=== PATIENT | female | born 1965 | race Caucasian/White ===

== ENCOUNTER 2019-06-17 10:30 | Inpatient (IN) ==
[2019-07-08] MEDS ORDERED: Lactated Ringers 1,000 ML PRIMARY IV ONE ×4 (06:00→11:33)
[2019-07-08] MEDS ORDERED: Nasal Sanitizer POPSWAB ampule 3 AMP (Nozin) PREOP DOSE ENOS SCH (06:00)
[2019-07-08] MEDS ORDERED: ceFAZolin Inj 2gm (Premix) 2 GM/50 ML BAG IV ONE ×2 (06:00→06:36)
[2019-07-08] MEDS ORDERED: Vancomycin-PHA to Dose IV PRN (06:00)
[2019-07-08] MEDS ORDERED: Vancomycin 1.5 gm (Premix) 1.5 GM/300 ML PIGGYBACK IV ONE ×2 (06:00→06:36)
[2019-07-08] MEDS ORDERED: LIDOCAINE W/ SODIUM BICARB 0.5 ML SYR ONE (06:36)
[2019-07-08] MEDS ORDERED: ACETAMINOPHEN 500 MG TABLET PO ONE ×2 (06:59→07:43)
[2019-07-08] MEDS ORDERED: CELECOXIB 200 MG CAPSULE PO ONE ×2 (06:59→07:43)
[2019-07-08] MEDS ORDERED: PANTOPRAZOLE 20 MG TABLET.DR PO ONE ×2 (06:59→07:43)
[2019-07-08] MEDS ORDERED: Gabapentin 600 MG TABLET PO ONE ×2 (06:59→07:43)
[2019-07-08 07:04] LABS: URINE SPECIFIC GRAVITY - MAN 1.019
[2019-07-08 07:10] LABS: BILIRUBIN,URINE NEGATIVE (NEG); CLARITY,URINE CLEAR (CLEAR); COLOR,URINE YELLOW (Y); GLUCOSE, URINE (UA) NEGATIVE (NEG); OCCULT BLOOD,URINE MODERATE (NEG); PROTEIN,URINE NEGATIVE (NEG); UROBILINOGEN,URINE 0.2 EU/dL (0.2)
[2019-07-08 07:16] LABS: RBC,URINE 0 /hpf; SQUAMOUS EPITHELIAL CELL,UR FEW; URINE SAMPLE TYPE CLEAN CATCH URINE; WBC,URINE 0-1
[2019-07-08] MEDS: LIDOCAINE W/ SODIUM BICARB 0.5 ML SYR SUBD ONE ×2 (07:28→07:29)
[2019-07-08] MEDS ORDERED: Propofol 1,000 MG/100 ML VIAL IV ONE ×2 (07:31→10:03)
[2019-07-08] MEDS ORDERED: MIDAZOLAM 5 MG/1 ML ONE (07:36)
[2019-07-08] MEDS ORDERED: fentaNYL Inj 250 MCG/5 ML VIAL ONE (07:36)
[2019-07-08] MEDS ORDERED: LIDOCAINE MPF 2% - 5 ML (20 MG/1 ML) ONE (07:37)
[2019-07-08] MEDS ORDERED: REMIFENTANIL HCL 2 MG VIAL IV ONE (07:54)
[2019-07-08] MEDS: IPRATROPIUM/ALBUTEROL SULFATE 3 ML NEB NEB ONE ×2 (08:03→13:05)
[2019-07-08] MEDS ORDERED: BACITRACIN 50,000 UNIT VIAL IRRIG ONE (08:35)
[2019-07-08] MEDS ORDERED: Sodium Chloride 0.9% vial 10 ML ONE (08:35)
[2019-07-08] MEDS ORDERED: THROMBIN (BOVINE) 20,000 UNIT KIT TOPICAL ONE ×2 (08:36→11:27)
[2019-07-08] MEDS ORDERED: DEXMEDETOMIDINE HCL 200 MCG/2 ML VIAL IV ONE (09:33)
[2019-07-08] MEDS ORDERED: KETAMINE 100 MG/1 ML - 5 ML ONE (09:33)
[2019-07-08] MEDS ORDERED: HYDROmorphone 2 MG/1 ML IVP PRN (10:12)
[2019-07-08] MEDS ORDERED: LIDOCAINE W/ SODIUM BICARB 0.5 ML SYR SUBD PRN (10:12)
[2019-07-08] MEDS ORDERED: ONDANSETRON 4 MG/2 ML VIAL IVP PRN ×2 (10:12→13:55)
[2019-07-08] MEDS ORDERED: DIAZEPAM 10 MG/2 ML (5 MG/1 ML) CARPUJECT IVP PRN (10:19)
[2019-07-08] MEDS ORDERED: Vancomycin Inj 1gm vial ONE (11:45)
[2019-07-08] MEDS ORDERED: PROPOFOL 10 MG/1 ML (200 MG/20 ML) VIAL IV ONE (11:48)
[2019-07-08] MEDS ORDERED: HYDROmorphone 2 MG/1 ML ONE (12:07)
[2019-07-08] MEDS ORDERED: Bacitracin Oint 14.2 gm tube 14 APPLIC/14.2 GM TUBE TOPICAL ONE (12:36)
[2019-07-08] MEDS ORDERED: IPRATROPIUM/ALBUTEROL SULFATE 3 ML NEB NEB ONE (13:03)
[2019-07-08] MEDS ORDERED: Ondansetron ODT Tab 4 MG TAB PO PRN (13:55)
[2019-07-08] MEDS ORDERED: MORPHINE SULFATE 2 MG/1 ML IVP PRN (13:55)
[2019-07-08] MEDS ORDERED: Zolpidem Tab 5 MG TAB PO PRN (13:55)
[2019-07-08] MEDS ORDERED: FORMOTEROL INH PRN (13:55)
[2019-07-08] MEDS ORDERED: MOMETASONE INH PRN (13:55)
[2019-07-08] MEDS ORDERED: CALCIUM CARBONATE 500 MG (TUMS) CHEWABLE TABLET PO PRN (13:55)
[2019-07-08] MEDS ORDERED: ACETAMINOPHEN 325 MG TABLET PO PRN (13:55)
[2019-07-08] MEDS ORDERED: DOCUSATE 100 MG CAPSULE PO PRN (13:55)
[2019-07-08] MEDS ORDERED: LABETALOL 20 MG/4 ML (5 MG/1 ML) SYRINGE IVP PRN (13:55)
[2019-07-08] MEDS ORDERED: METAXALONE 800 MG PO PRN (13:55)
[2019-07-08] MEDS ORDERED: HYDRALAZINE 20 MG/1 ML IVP PRN (13:55)
[2019-07-08 14:35] LABS: BASOPHILS # (AUTO) 0.01 10*3/UL; BASOPHILS % (AUTO) 0.2 % (0-1); EOSINOPHILS # (AUTO) 0.05 10*3/UL; EOSINOPHILS % (AUTO) 0.8 % (0-8); LYMPHOCYTES # (AUTO) 1.88 10*3/uL; MEAN CORPUSCULAR HGB CONC 31.7 g/dL (33-37); MEAN CORPUSCULAR VOLUME 96.2 FL (81-99); MEAN PLATELET VOLUME 9.5 FL (7.4-12.2); MONOCYTES # (AUTO) 0.48 10*3/UL (0.3-0.8); MONOCYTES % (AUTO) 7.3 % (5-15); NEUTROPHILS # (AUTO) 4.06 10*3/UL; NEUTROPHILS % (AUTO) 62.1 % (50-80); RED BLOOD COUNT 4.26 10^6/uL (4.20-5.40)
[2019-07-08 14:39] LABS: PLATELET MORPHOLOGY COMMENT NORMAL MORPHOLOGY (NORM); RBC MORPHOLOGY COMMENT NORMAL MORPHOLOGY (NORM); WBC MORPHOLOGY COMMENT NORMAL MORPHOLOGY (NORM)
[2019-07-08] MEDS: oxyCODONE-ACETAMINOPHEN 5-325 TAB PO PRN ×2 (14:45→23:14)
[2019-07-08] MEDS: D5-1/2NS + 20mEq KCL 1,000 ML PRIMARY IV SCH (14:45)
[2019-07-08] MEDS: KETOROLAC 15 MG/1 ML VIAL IVP SCH ×2 (14:45→20:01)
[2019-07-08] MEDS ORDERED: IPRATROPIUM/ALBUTEROL SULFATE 3 ML NEB NEB PRN (14:46)
[2019-07-08 14:47] LABS: BLOOD UREA NITROGEN 20 mg/dL (7-22); BUN/CREATININE RATIO 28.57 (6-20)
[2019-07-08] MEDS ORDERED: Esomeprazole DR 20mg Capsule PO SCH ×2 (17:00→17:30)
[2019-07-08] MEDS: ceFAZolin Inj 1 GM in Sodium Chloride 0.9% 100 ML IV SCH (17:03)
[2019-07-08] MEDS: IPRATROPIUM/ALBUTEROL SULFATE 3 ML NEB NEB SCH (18:36)
[2019-07-08] MEDS ORDERED: ALBUTEROL SULFATE 2.5 MG/3 ML NEB SCH (19:00)
[2019-07-08] MEDS ORDERED: Sodium Chloride 0.9% 250 ML ONE (19:38)
[2019-07-08] MEDS: CYCLOBENZAPRINE 10 MG TABLET PO PRN ×2 (20:02→23:40)
[2019-07-08] MEDS ORDERED: Ropinirole Tab 0.25 MG TAB PO SCH (21:00)
[2019-07-08] MEDS ORDERED: CITALOPRAM 20 MG TABLET PO SCH (21:00)
[2019-07-09] MEDS: ceFAZolin Inj 1 GM in Sodium Chloride 0.9% 100 ML IV SCH ×2 (00:50→08:13)
[2019-07-09] MEDS: D5-1/2NS + 20mEq KCL 1,000 ML PRIMARY IV SCH (01:03)
[2019-07-09] MEDS: KETOROLAC 15 MG/1 ML VIAL IVP SCH ×4 (02:49→15:54)
[2019-07-09 03:59] VITALS: RESP 20
[2019-07-09] MEDS: IPRATROPIUM/ALBUTEROL SULFATE 3 ML NEB NEB SCH (06:31)
[2019-07-09] MEDS ORDERED: Sodium Chloride 0.9% 0 ML ONE (06:53)
[2019-07-09] MEDS ORDERED: VILANTEROL INH SCH (07:00)
[2019-07-09] MEDS ORDERED: FLUTICASONE INH SCH (07:00)
[2019-07-09] MEDS ORDERED: FLUTICASONE PO SCH (07:00)
[2019-07-09] MEDS ORDERED: VILANTEROL PO SCH (07:00)
[2019-07-09] MEDS: CYCLOBENZAPRINE 10 MG TABLET PO PRN ×2 (07:01→13:06)
[2019-07-09] MEDS ORDERED: FEXOFENADINE PO SCH (09:00)
[2019-07-09] MEDS ORDERED: PSEUDOEPHEDRINE PO SCH (09:00)
[2019-07-09 10:41] VITALS: BP 152/88; TEMP 98
[2019-07-09 13:14] VITALS: O2SAT 93
== END 2019-07-09 16:30 | disposition home or self-care (01) | DRG 460 ==
LOC: OPS 07-08 06:36 → MED/SURG 07-08 13:46
PROVIDERS: ADMIT Neurological Surgery; ATTEND Neurological Surgery